=== PATIENT | male | born 1975 | race Caucasian/White ===

== ENCOUNTER 2022-01-09 12:40 | Emergency (ER) | payer MEDICAID ==
[~2022-01-09] VITALS: Ht 188 cm; Wt 115.0 kg
[~2022-01-09 12:40] MED LIST: CLONIDINE; PERCOCET; SEROQUEL; ZOLOFT
[2022-01-09 13:21] LABS: BASOPHILS % 0.7 % (0.0-2.0); EOSINOPHILS % 3.3 % (0.0-5.0); HEMATOCRIT. 38.5 % (42.0-52.0); HEMOGLOBIN. 13.3 g/dL (14.0-18.0); LYMPHOCYTES % 22.9 % (20.0-50.0); MEAN CORPUSCULAR HEMOGLOBIN 30.5 pg (28.0-32.0); MEAN PLATELET VOLUME 8.5 fl (7.4-10.4); NEUTROPHILS % 63.1 % (40.0-76.0); PLATELET 74 x1000/uL (130-400); RED BLOOD CELL COUNT 4.37 mill/uL (4.7-6.1); RED CELL DISTRIBUTION WIDTH 15.6 % (11.6-14.6)
[2022-01-09 13:25] LABS: CHLORIDE 107 mEq/L (98-107)
[2022-01-09 13:29] LABS: ETHANOL BLOOD 77 mg/dL
[2022-01-09 14:25] LABS: *AMPHETAMINES SCREEN URINE PRESUMTIVE POSITIVE (NEGATIVE); *BARBITURATES SCREEN URINE NEGATIVE (NEGATIVE); *BENZODIAZEPINES SCREEN URINE NEGATIVE (NEGATIVE); *COCAINE SCREEN URINE NEGATIVE (NEGATIVE); METHADONE URINE SCREEN NEGATIVE (NEGATIVE)
[2022-01-09 14:27] LABS: CANNABINOID URINE SCREEN PRESUMTIVE POSITIVE (NEGATIVE); OPIATES URINE SCREEN NEGATIVE (NEGATIVE); PHENCYCLIDINE URINE SCREEN NEGATIVE (NEGATIVE)
[2022-01-09] MEDS ORDERED: IOHEXOL-350 100 ML BOTTLE ONE (16:10)
[2022-01-09] MEDS ORDERED: LEVO750T46 MT (16:49)
[2022-01-09 16:58] VITALS: BP 110/50
== END 2022-01-09 17:55 | disposition home or self-care (01) ==
LOC: ER 12:40
DX: T43.621A Poisoning by amphetamines, accidental (unintentional), initial encounter (principal); R06.00 Dyspnea, unspecified; Z98.890 Other specified postprocedural states; Z88.8 Allergy status to other drugs, medicaments and biological substances; Z88.0 Allergy status to penicillin; Y92.018 Other place in single-family (private) house as the place of occurrence of the external cause
CPT/HCPCS: 36415; 71045; 71275; 80053; 80305; 80320; 83880; 84484; 85025; 85379; 93005; 99285; Q9967; G0480

== ENCOUNTER 2023-03-09 06:50 | Emergency (ER) | payer MEDICAID, OTHER ==
[~2023-03-09] VITALS: Ht 182.9 cm; Wt 113.0 kg
[~2023-03-09 06:50] MED LIST changes: +LEVO750T68 MT
[2023-03-09 06:56] VITALS: BP 152/80
[2023-03-09] MEDS ORDERED: CLIN-116 PO (08:06)
[2023-03-09] MEDS ORDERED: IBUP-2030 PO (08:06)
== END 2023-03-09 08:31 | disposition home or self-care (01) ==
LOC: ER 06:50
DX: K04.7 Periapical abscess without sinus (principal); Z79.899 Other long term (current) drug therapy; Z88.0 Allergy status to penicillin
CPT/HCPCS: 99283

== ENCOUNTER 2023-05-06 22:37 | Emergency (ER) | payer OTHER ==
[~2023-05-06] VITALS: Ht 182.9 cm; Wt 126.5 kg
[~2023-05-06 22:37] MED LIST changes: +CLIN-116 PO; +IBUP-2030 PO
[2023-05-06 23:11] VITALS: BP 135/97; PULSE 120; RESP 16; TEMP 98; O2SAT 98
[2023-05-06 23:44] LABS: BASOPHILS % 0.8 % (0.0-2.0); EOSINOPHILS % 1.4 % (0.0-5.0); HEMATOCRIT. 47.3 % (42.0-52.0); HEMOGLOBIN. 16.2 g/dL (14.0-18.0); LYMPHOCYTES % 19.8 % (20.0-50.0); MEAN CORPUSCULAR HEMOGLOBIN 30.9 pg (28.0-32.0); MEAN CORPUSCULAR VOLUME 89.8 fL (80.0-94.0); MEAN PLATELET VOLUME 8.6 fl (7.4-10.4); MONOCYTES % 8.4 % (2.0-8.0); NEUTROPHILS % 69.6 % (40.0-76.0); PLATELET 121 x1000/uL (130-400); RED BLOOD CELL COUNT 5.26 mill/uL (4.7-6.1)
[2023-05-06 23:59] LABS: CHLORIDE 106 mEq/L (98-107)
[2023-05-07 02:53] LABS: CLARITY URINE CLEAR (CLEAR); COLOR URINE YELLOW (YELLOW); KETONES URINE NEGATIVE (NEGATIVE); LEUKOCYTE ESTERASE URINE NEGATIVE (NEGATIVE); NITRITE URINE NEGATIVE (NEGATIVE); OCCULT BLOOD URINE NEGATIVE (NEGATIVE); PROTEIN URINE NEGATIVE (NEGATIVE); SPECIFIC GRAVITY URINE 1.007 (1.005-1.030)
[2023-05-07] MEDS ORDERED: IOHEXOL-300 100 ML BOTTLE ONE (03:10)
[2023-05-07] MEDS ORDERED: CLIN-116 MT (03:22)
[2023-05-07] MEDS ORDERED: POLY17PO3 MT (03:23)
== END 2023-05-07 04:26 | disposition left against medical advice (07) ==
LOC: ER 22:37
DX: K59.00 Constipation, unspecified (principal); Z88.0 Allergy status to penicillin; Z88.8 Allergy status to other drugs, medicaments and biological substances
CPT/HCPCS: 80053; 83690; 85025; 36415; 99285; 81003; 74177; Q9967; Z7610

== ENCOUNTER 2023-08-02 22:46 | Emergency (ER) | payer OTHER ==
[~2023-08-02 22:46] MED LIST changes: +CLIN-116 MT; +POLY17PO3 MT
== END 2023-08-03 00:14 | disposition left against medical advice (07) ==
LOC: ER 22:46
DX: R06.02 Shortness of breath (principal); Z79.899 Other long term (current) drug therapy; Z88.0 Allergy status to penicillin
CPT/HCPCS: 99281

== ENCOUNTER 2023-11-26 18:58 | Emergency (ER) | payer OTHER ==
[~2023-11-26] VITALS: Ht 182.9 cm; Wt 113.0 kg
[2023-11-26 19:32] VITALS: BP 136/73; PULSE 99; RESP 16; TEMP 98.5; O2SAT 96
[2023-11-26] MEDS ORDERED: BACITRACIN ZINC OINT UDPKT TOP ONE (20:00)
== END 2023-11-26 23:41 | disposition left against medical advice (07) ==
LOC: ER 18:58
DX: M79.89 Other specified soft tissue disorders (principal); Z53.21 Procedure and treatment not carried out due to patient leaving prior to being seen by health care provider
CPT/HCPCS: 99281

== ENCOUNTER 2024-03-22 13:05 | Emergency (ER) | payer OTHER ==
[~2024-03-22] VITALS: Ht 182.9 cm; Wt 115.0 kg
[2024-03-22 13:16] VITALS: TEMP 98.8; O2SAT 97
[2024-03-22 16:03] LABS: BASOPHILS % 0.5 % (0.0-2.0); EOSINOPHILS % 0.2 % (0.0-5.0); HEMATOCRIT. 48.4 % (42.0-52.0); HEMOGLOBIN. 16.8 g/dL (14.0-18.0); LYMPHOCYTES % 19.5 % (20.0-50.0); MEAN CORPUSCULAR HGB CONC 34.8 g/dL (31.0-37.0); MEAN CORPUSCULAR VOLUME 92.2 fL (80.0-94.0); MEAN PLATELET VOLUME 9.3 fl (7.4-10.4); MONOCYTES % 13.4 % (2.0-8.0); NEUTROPHILS % 66.4 % (40.0-76.0); PLATELET 144 x1000/uL (130-400); RED BLOOD CELL COUNT 5.25 mill/uL (4.7-6.1); RED CELL DISTRIBUTION WIDTH 15.2 % (11.6-14.6); WHITE BLOOD COUNT 10.1 x1000/uL (4.5-11.0)
[2024-03-22 16:08] LABS: CHLORIDE 104 mEq/L (98-107); POTASSIUM 3.2 mEq/L (3.5-5.1); SODIUM 134 mEq/L (136-145)
[2024-03-22 16:09] LABS: CARBON DIOXIDE 22 mEq/L (21-32)
[2024-03-22 16:10] LABS: CALCIUM 9.4 mg/dL (8.7-10.4)
[2024-03-22 16:14] LABS: CREATININE 0.6 mg/dL (0.6-1.3); GLUCOSE 160 mg/dL (70-105)
[2024-03-22 16:18] LABS: UREA NITROGEN BLOOD < 5 mg/dL (9-23)
[2024-03-22] MEDS: ONDANSETRON 4MG ODT PO ONE (18:01)
[2024-03-22 18:04] LABS: ETHANOL BLOOD 208 mg/dL (<10)
[2024-03-22 18:05] LABS: ALANINE AMINOTRANSFERASE 40 IU/L (10-49)
[2024-03-22 18:06] LABS: ALBUMIN 3.5 g/dL (3.2-4.8); ASPARTATE AMINOTRANSFERASE 90 IU/L (<34); BILIRUBIN DIRECT 1.6 mg/dL (<=3.0); BILIRUBIN TOTAL 3.2 mg/dL (0.1-1.0); PROTEIN TOTAL 8.7 g/dL (6.0-8.3)
[2024-03-22 18:13] LABS: CLARITY URINE CLEAR (CLEAR); COLOR URINE ORANGE (YELLOW); GLUCOSE URINE NEGATIVE (NEGATIVE); KETONES URINE NEGATIVE (NEGATIVE); LEUKOCYTE ESTERASE URINE 1+ (NEGATIVE); NITRITE URINE POSITIVE (NEGATIVE); OCCULT BLOOD URINE NEGATIVE (NEGATIVE); PH URINE 6.5 (4.5-8.0); PROTEIN URINE 1+ (NEGATIVE); SPECIFIC GRAVITY URINE 1.022 (1.005-1.030)
[2024-03-22 18:29] LABS: BACTERIA URINE 2+; SQUAMOUS EPITHELIAL CELL URINE 1+ /lpf (RARE/1+)
[2024-03-22] MEDS: KETOROLAC 60MG/2ML VIAL IM ONE (19:05)
[2024-03-22] MEDS: POTASSIUM CHLORIDE 20MEQ TABLET SR PO ONE (19:05)
[2024-03-22 21:41] VITALS: BP 144/88; PULSE 77; RESP 20
== END 2024-03-22 21:43 | disposition home or self-care (01) ==
LOC: ER 13:05
DX: R11.2 Nausea with vomiting, unspecified (principal); K74.60 Unspecified cirrhosis of liver; E87.6 Hypokalemia; F10.129 Alcohol abuse with intoxication, unspecified; Z20.822 Contact with and (suspected) exposure to COVID-19; Z88.0 Allergy status to penicillin; Z91.048 Other nonmedicinal substance allergy status; Z79.899 Other long term (current) drug therapy; Y90.7 Blood alcohol level of 200-239 mg/100 ml
CPT/HCPCS: 80076; 80048; 81003; 80320; 87430; 83690; 85025; 87070; 87804 ×2; 36415; 74176; 96372; 99285; 87426; Q0162; J1885; G0480